=== PATIENT | male | born 1990 | race Two or more races ===

== ENCOUNTER 2020-03-09 17:30 | Emergency (ER) | payer OTHER ==
[~2020-03-09] VITALS: Ht 185.4 cm; Wt 90.0 kg
[2020-03-09 17:34] VITALS: BP 197/104
[2020-03-09] MEDS ORDERED: PRED5TAB PO (19:50)
[2020-03-09] MEDS ORDERED: ipratropium/albuterol 3ml nebule NEB ONE (19:50)
[2020-03-09] MEDS ORDERED: predniSONE 20 mg tablet PO ONE (19:50)
[2020-03-09] MEDS ORDERED: ALBU18HF2 INH (19:50)
[2020-03-09] MEDS ORDERED: INHA1INH2 INH (19:50)
== END 2020-03-09 20:08 | disposition home or self-care (01) ==
LOC: ER 17:30
DX: J98.01 Acute bronchospasm (principal); J45.909 Unspecified asthma, uncomplicated; F12.90 Cannabis use, unspecified, uncomplicated; Z72.89 Other problems related to lifestyle; Z79.899 Other long term (current) drug therapy
CPT/HCPCS: 94640; 99283; J7512; 94760